=== PATIENT | female | born 1985 | race Caucasian/White ===

== ENCOUNTER 2018-05-20 20:01 | Emergency (ER) | payer BC ==
[~2018-05-20] VITALS: Ht 165.1 cm; Wt 82.0 kg
[2018-05-20 20:09] VITALS: BP 149/87
[2018-05-20] MEDS ORDERED: ondansetron 4mg rapidly disintigrating tab PO ONE (20:50)
[2018-05-20] MEDS ORDERED: acetaminophen 325mg tablet PO ONE (21:15)
== END 2018-05-20 21:59 | disposition home or self-care (01) ==
LOC: ER 20:01
DX: S01.01XA Laceration without foreign body of scalp, initial encounter (principal); W18.39XA Other fall on same level, initial encounter; Y93.83 Activity, rough housing and horseplay; Y92.89 Other specified places as the place of occurrence of the external cause; Y99.8 Other external cause status
CPT/HCPCS: 12002; 99283

== ENCOUNTER 2023-12-14 07:45 | Emergency (ER) | payer BC ==
[~2023-12-14] VITALS: Ht 167.6 cm; Wt 73.7 kg
[2023-12-14 10:16] VITALS: BP 117/58; PULSE 106; RESP 12; TEMP 98.2; O2SAT 98
== END 2023-12-14 10:17 | disposition home or self-care (01) ==
LOC: ER 07:45
DX: S92.512A Displaced fracture of proximal phalanx of left lesser toe(s), initial encounter for closed fracture (principal); X58.XXXA Exposure to other specified factors, initial encounter; Y93.89 Activity, other specified; Y92.89 Other specified places as the place of occurrence of the external cause; Y99.8 Other external cause status
CPT/HCPCS: 73660; 99284; L3260

== ENCOUNTER 2025-04-06 15:17 | Outpatient (CLI) | payer OTHER ==
--- NOTE | 2025-04-06 18:03 | RADIOLOGY REPORT ---
PROCEDURE: MR MRI LUMBAR SPINE Indication: LUMBAR RADICULOPATHY, SACROILIITIS, LOW BACK PAIN COMPARISON: None TECHNIQUE: Multiplanar multisequence images of the the lumbar spine are obtained. FINDINGS: For the purpose of this examination, there are 5 lumbar vertebral body types counting from the lumbosacral junction. The lumbar vertebral body heights are maintained. Cqak-pd-lrsrpejn multilevel disc space narrowing and desiccation most pronounced at L2-3, L5-S1. No abnormal marrow edema. Conus terminates at the L1 level T12-L1: No spinal canal, neural foraminal stenosis. L1-2: Tiny disc protrusion. Mild facet and flavum hypertrophy. No spinal canal, neural foraminal stenosis. L2-3: 2 mm disc protrusion. Juav-gh-oggzzmvw facet and flavum hypertrophy. No spinal canal stenosis. No neural foraminal stenosis. L3-4: Tiny disc protrusion. Moderate facet and flavum hypertrophy. No spinal canal stenosis. Mild bilateral neural foraminal stenosis. L4-5: Tiny disc protrusion. Moderate facet and flavum hypertrophy. No spinal canal stenosis. Mild bilateral neural foraminal stenosis. L5-S1: Small right paracentral disc protrusion extending 2 mm posteriorly. Moderate facet and flavum hypertrophy. No spinal canal stenosis. There is uoxf-ij-zmrausoa bilateral neural foraminal stenosis Mild degenerate changes of the bilateral SI joints. IMPRESSION: Dhuy-mb-tvwugxxw lumbar degenerative disc disease. No high grade spinal canal stenosis. Sxtd-vp-kfoengqp neural foraminal stenosis at L3-4, L4-5 and L5-S1 as described
== END 2025-04-06 23:59 | disposition home or self-care (01) ==
LOC: MRI02 15:17
PROVIDERS: ATTEND Nurse Practitioner Adult Health
DX: M51.17 Intervertebral disc disorders with radiculopathy, lumbosacral region (principal); M46.1 Sacroiliitis, not elsewhere classified; M54.59 Other low back pain; M48.07 Spinal stenosis, lumbosacral region; M47.27 Other spondylosis with radiculopathy, lumbosacral region
CPT/HCPCS: 72148